=== PATIENT | female | born 1950 | race Caucasian/White ===

== ENCOUNTER 2018-09-23 13:00 | Emergency (ER) | payer OTHER ==
[~2018-09-23] VITALS: Ht 157.5 cm; Wt 89.1 kg
[2018-09-23 13:04] VITALS: BP 167/81; PULSE 83; RESP 18; Ht 157.5 cm; Wt 89.1 kg
[2018-09-23] MEDS ORDERED: KETOROLAC 30 MG INJ IM STA (15:45)
[2018-09-23] MEDS ORDERED: METHOCARBAMOL 750 MG TAB PO ONE (16:00)
[2018-09-23] MEDS ORDERED: MED4DP PO (17:04)
[2018-09-23] MEDS ORDERED: TRAM50TA2 PO (17:08)
--- NOTE | 2018-09-23 21:55 | ERD ---
ER Documentation Chief Complaint Chief Complaint rt hip pain radiating to both legs x 3 months , no injury HPI 68-year-old female presents for low back pain with radiation to her right leg x3 days. She has chronic low back pain however it has gotten worse over the past few days. She states that she has 10 out of 10 pain, described as sharp. Past medical history of diabetes, hypertension, osteoarthritis of the right knee. ROS All systems reviewed and are negative except as per history of present illness. Medications Home Meds Active Scripts Tramadol HCl (Tramadol HCl) 50 Mg Tablet, 50 MG PO Q8H PRN for PAIN, #20 TAB Prov:AUSTIN QUIÑONES DO 09/23/18 Methylprednisolone* (Medrol* DOSE PACK) 4 Mg/Dose-Pack Tab.ds.pk, 4 MG PO . DIRECTED for low back pain, #1 PACKET Prov:AUSTIN QUIÑONES DO 09/23/18 PMhx/Soc Hx Alcohol Use: No Hx Substance Use: No Hx Tobacco Use: No Smoking Status: Never smoker Physical Exam Vitals Vital Signs Date Temp Pulse Resp B/P (MAP) Pulse Ox O2 O2 Flow FiO2 Time Delivery Rate 09/23/18 98.4 83 18 167/81 98 13:04 (109) Physical Exam Const: No acute distress Resp: Clear to auscultation bilaterally Cardio: Regular rate and rhythm, no murmurs, bilateral dorsalis pedis pulses intact Abd: Soft, non tender, non distended. Normal bowel sounds Skin: No petechiae or rashes Back: Low back paravertebral muscle tenderness palpation Ext: No cyanosis, or edema Neur: Awake and alert, bilateral lower extremity sensation intact Psych: Normal Mood and Affect Results 24 hrs Current Medications Medications Dose Sig/Emile Start Time Status Last (Trade) Ordered Route PRN Stop Time Admin Dose Reason Admin Ketorolac 30 mg ONCE STAT 09/23/18 DC 09/23/18 Tromethamine IM 15:45 15:57 (Toradol) 09/23/18 15:47 750 mg ONCE ONCE 09/23/18 DC 09/23/18 Methocarbamol PO 16:00 15:57 (Robaxin) 09/23/18 16:01 Procedures/MDM Medical Decision Making: Differential diagnosis includes but not limited to muscle strain, ligamentous sprain, epidural abscess, osteomyelitis, osteoarthritis, herniated disc, compression fracture, aortic aneurysm, kidney stone, pyelonephritis, pancreatitis. Patient appeared well on physical examination. Nontoxic appearing. Lumbar CT showed multilevel degenerative disc disease, severe central canal stenosis at L4-5 with focally severe right mild left neural foraminal narrowing, L3-4 there is likely severe central canal stenosis with moderate left mild right neural foraminal narrowing, L5-S1 severe bulky bilateral facet arthropathy with osteophyte formation results in flattening of the exiting L5 nerve roots bilaterally likely resulting in impingement but would clinically correlate. ED course: Patient was given Toradol and Robaxin. Symptoms improved with treatment. Changes on the lumbar CT appear to be chronic. Prescription(s): Patient given prescription for steroid and tramadol. Patient advised to follow probably with her PCP, may need referral to orthopedic or neurosurgery. Patient advised to follow up with PCP in 1-2 days. Patient advised to return to ED for new or worsening symptoms. Patient stable on discharge from the ED. Disclaimer: Inadvertent spelling and grammatical errors are likely due to EHR/dictation software use and do not reflect on the overall quality of patient care. Also, please note that the electronic time recorded on this note does not necessarily reflect the actual time of the patient encounter. Departure Diagnosis: Primary Impression: Low back pain Condition: Fair Patient Instructions: Back Pain (Acute Or Chronic) Referrals: [facility] YOU HAVE RECEIVED A MEDICAL SCREENING EXAM AND THE RESULTS INDICATE THAT YOU DO NOT HAVE A CONDITION THAT REQUIRES URGENT TREATMENT IN THE EMERGENCY DEPARTMENT. FURTHER EVALUATION AND TREATMENT OF YOUR CONDITION CAN WAIT UNTIL YOU ARE SEEN IN YOUR DOCTORS OFFICE WITHIN THE NEXT 1-2 DAYS. IT IS YOUR RESPONSIBILITY TO MAKE AN APPOINTMENT FOR FOLOW-UP CARE. IF YOU HAVE A PRIMARY DOCTOR --you should call your primary doctor and schedule an appointment IF YOU DO NOT HAVE A PRIMARY DOCTOR YOU CAN CALL OUR PHYSICIAN REFERRAL HOTLINE AT IF YOU CAN NOT AFFORD TO SEE A PHYSICIAN YOU CAN CHOSE FROM THE FOLLOWING [facility] [address] [facility] [address] [facility] [facility] [address] [facility] [address] [facility] [address] [facility]. [facility] [address] Additional Instructions: Llame al doctor MAANA y darien césar SUSI PARA DENTRO DE 1-2 VILLARREAL.Dgale a la secretaria que nosotros le instruimos hacer esta susi.Avise o llame si dubois condicin se empeora antes de la susi. Regresa aqui si peor o no mejor. AUSTIN QUIÑONES DO Sep 23, 2018 21:55
== END 2018-09-23 17:22 | disposition home or self-care (01) ==
LOC: FTE 13:00
DX: M54.5 Low back pain (principal)
CPT/HCPCS: 72131; 96372; J1885; Z7502; Z7610